=== PATIENT | female | born 1970 | race Caucasian/White ===

== ENCOUNTER 2018-12-02 16:58 | Emergency (ER) | payer MEDICAID ==
[~2018-12-02] VITALS: Ht 152.4 cm; Wt 72.6 kg
[~2018-12-02 16:58] MED LIST: ACETAMINOPHEN-1 EAC1 PO; ALBUTEROL INHAL17 GM IH; AMITRIPTYLINE H25 M2; APAP500 PO; ATIVAN0.5 MG PO; AZITHROMYCIN 2250 MG; AZITHROMYCIN 2250 MG PO; BACTRIM DS TAB1 EACH PO; CELEXA40 MG PO; CIPROFLOXACIN500 M1 PO; CLEOCIN HCL300 MG PO; CYMBALTA60 MG; CYMBALTA60 MG PO; DILAUDID2 M1 PO; FIORICET 50-321 EACH PO; FLEXERIL PO; HYDROCHLOROTHIA25 M2 PO; HYDROCODON-ACE1 EAC7 PO; HYDROCODONE-APA10 ML; IBUPROFEN 600600 M1 PO; IBUPROFEN 800800 M1 PO; IMITREX6 MG/0.5 M SQ; LEVSIN0.125 MG PO; LIORESAL 10 MG10 MG PO; LISINOPRIL10 MG PO; LOPRESSOR50 PO; MELATONIN3 MG; MIRALAX17 GM PO; MOBIC7.5 MG PO; MULTIVITAMINS; NEURONTIN 300300 M1 PO; NEXIUM40 MG; NEXIUM40 MG PO; NORCO 5-325 TA1 EACH PO; NORFLEX100 MG PO; PEPCID40 MG PO; PERCOCET 5-3251 EACH PO; PHENERGAN 25 MG25 MG PO; PROAIR HFA8.5 GM; PROAIR HFA8.5 GM IH; REGLAN 10 MG TA10 M1 PO; TYLENOL EX-STR500 M2 PO; VALIUM5 MG PO; XANAX 0.5 MG0.5 M1 PO; ZANTAC 150MG T150 M1; ZANTAC 150MG T150 M1 PO; ZOFRAN 4 MG ORAL4 M1 DIS; ZOFRAN ODT4 MG PO; ZOFRAN4 MG PO
[2018-12-02] MEDS ORDERED: SEROQUEL 50 MG50 MG PO (17:19)
[2018-12-02] MEDS ORDERED: MEDROLDOSEPACK PO (17:56)
[2018-12-02] MEDS ORDERED: CLEOCIN HCL300 MG PO (17:56)
[2018-12-02] MEDS ORDERED: VENTOLIN HFA 1818 GM INH (17:56)
[2018-12-02 18:06] VITALS: BP 136/88
== END 2018-12-02 18:07 | disposition home or self-care (01) ==
LOC: M.ERS 16:58
DX: K08.89 Other specified disorders of teeth and supporting structures (principal); J20.9 Acute bronchitis, unspecified; I10 Essential (primary) hypertension; F17.210 Nicotine dependence, cigarettes, uncomplicated; Z88.0 Allergy status to penicillin; Z88.6 Allergy status to analgesic agent; Z88.8 Allergy status to other drugs, medicaments and biological substances; Z98.890 Other specified postprocedural states; Z85.3 Personal history of malignant neoplasm of breast

== ENCOUNTER 2018-12-13 20:30 | Emergency (ER) | payer MEDICAID ==
[~2018-12-13] VITALS: Ht 152.4 cm; Wt 68.0 kg
[~2018-12-13 20:30] MED LIST changes: +MEDROLDOSEPACK PO; +SEROQUEL 50 MG50 MG PO; +VENTOLIN HFA 1818 GM INH
[2018-12-13 20:31] VITALS: BP 125/80
[2018-12-13] MEDS ORDERED: FOLBIC RF TABL1 EACH PO (20:35)
[2018-12-13] MEDS ORDERED: IRON325 PO (20:35)
== END 2018-12-13 20:56 | disposition home or self-care (01) ==
LOC: M.ERS 20:30
DX: M54.5 Low back pain (principal); I10 Essential (primary) hypertension; G89.29 Other chronic pain; Z85.3 Personal history of malignant neoplasm of breast; F17.210 Nicotine dependence, cigarettes, uncomplicated; Z88.0 Allergy status to penicillin; Z88.5 Allergy status to narcotic agent; Z88.6 Allergy status to analgesic agent; Z88.8 Allergy status to other drugs, medicaments and biological substances

== ENCOUNTER 2018-12-24 16:06 | Emergency (ER) | payer MEDICAID ==
[~2018-12-24] VITALS: Ht 160 cm; Wt 72.6 kg
[~2018-12-24 16:06] MED LIST changes: +FOLBIC RF TABL1 EACH PO; +IRON325 PO
[2018-12-24 16:46] VITALS: BP 178/98
== END 2018-12-24 16:46 | disposition home or self-care (01) ==
LOC: M.ERS 16:06
DX: S40.012A Contusion of left shoulder, initial encounter (principal); F41.9 Anxiety disorder, unspecified; I10 Essential (primary) hypertension; M54.9 Dorsalgia, unspecified; G89.29 Other chronic pain; Z85.3 Personal history of malignant neoplasm of breast; F17.210 Nicotine dependence, cigarettes, uncomplicated; Z88.0 Allergy status to penicillin; Z88.5 Allergy status to narcotic agent; Z88.6 Allergy status to analgesic agent; Z88.8 Allergy status to other drugs, medicaments and biological substances; W06.XXXA Fall from bed, initial encounter; Y93.89 Activity, other specified; Y92.89 Other specified places as the place of occurrence of the external cause; Y99.8 Other external cause status